=== PATIENT | female | born 1985 | race Caucasian/White ===

== ENCOUNTER 2022-12-28 06:21 | Day surgery (SDC) | payer OTHER ==
[2022-12-25 11:32] VITALS: BP 98/61
[2022-12-25 11:37] LABS: BASOPHILS % (AUTO) 0.8 % (0.0-5.0); EOSINOPHILS % (AUTO) 3.5 % (0.0-8.0); HEMATOCRIT 37.9 % (36-48); LYMPHOCYTES % (AUTO) 33.3 % (21.0-51.0); MEAN CORPUSCULAR HEMOGLOBIN 29.4 pg (27.0-33.0); MEAN CORPUSCULAR HGB CONC 32.2 g/dL (32.0-36.0); MEAN CORPUSCULAR VOLUME 91.3 fL (79-99); NEUTROPHILS % (AUTO) 55.2 % (40.0-77.0); PLATELET COUNT (AUTO) 430 K/uL (130-400); RED BLOOD CELL COUNT(AUTO) 4.15 MIL/uL (4.00-5.50); RED CELL DISTRIBUTION WIDTH 13.3 % (11.0-15.5); WHITE BLOOD COUNT (AUTO) 6.3 K/uL (4.8-10.8)
[~2022-12-28] VITALS: Ht 157.5 cm; Wt 46.2 kg
[2022-12-28] VITALS (15 sets, daily range): BP systolic 103–127; BP diastolic 64–83
[~2022-12-28 06:21] MED LIST: CETI10TA57 PO; IBUP-2077 PO
[2022-12-28] MEDS ORDERED: IBUPROFEN IV SCH (06:30)
[2022-12-28] MEDS ORDERED: NACL 0.9% IV SCH (06:30)
[2022-12-28] MEDS ORDERED: [UNRECOGNIZED DRUG - REMARK] MISC SCH (06:30)
[2022-12-28] MEDS ORDERED: CALDOLOR 800MG+NS 250ML 250 ML IV ONE (06:31)
[2022-12-28] MEDS ORDERED: LIDOCAINE PF 100MG/5ML (2%) SYRINGE 5ML ONE (06:42)
[2022-12-28] MEDS ORDERED: MIDAZOLAM HCL 1 MG/ML 2ML VIAL ONE (06:43)
[2022-12-28] MEDS ORDERED: PROPOFOL 10 MG/ML 20ML VIAL IV ONE (06:43)
[2022-12-28] MEDS ORDERED: FENTANYL CITRATE PF 50 MCG/1 ML 2ML VIAL ONE (06:43)
[2022-12-28] MEDS ORDERED: LACTATED RINGERS 1000ML 1,000 ML IV ONE (06:51)
[2022-12-28] MEDS ORDERED: CLINDAMYCIN IVPB 900MG/50ML 50 ML IV ONE (07:17)
[2022-12-28] MEDS ORDERED: STRONG IODINE SOLN 14ML BOTTLE ONE (07:58)
[2022-12-28] MEDS ORDERED: GLYCOPYRROLATE 1 MG/5 ML SYRINGE ONE (08:13)
== END 2022-12-28 10:10 | disposition home or self-care (01) ==
LOC: DAH 06:21 → EDSEX 09:00 → DAH 10:10
PROVIDERS: ATTEND Obstetrics & Gynecology
DX: R87.611 Atypical squamous cells cannot exclude high grade squamous intraepithelial lesion on cytologic smear of cervix (ASC-H) (principal); Z20.822 Contact with and (suspected) exposure to COVID-19; N72 Inflammatory disease of cervix uteri; Z88.0 Allergy status to penicillin; Z87.891 Personal history of nicotine dependence; Z80.3 Family history of malignant neoplasm of breast; Z83.49 Family history of other endocrine, nutritional and metabolic diseases; Z72.89 Other problems related to lifestyle
CPT/HCPCS: 84703; 85025; 86850 ×2; 86900 ×2; 86901 ×2; 87426; 36415 ×2; 57520; 88307; 88342; 88341; A6260; A4663; A4351; J7120; J3010; J3490 ×2; J2001; J2250; J2704; J1741; A4649; A4215; A4223; A4222; A4221; A4600; A4510

== ENCOUNTER → 2023-02-11 | Outpatient (CLI) | payer OTHER ==
[~2023-02-11] MED LIST changes: +IOHEXOL 350 MG/ML 100ML INFUS..BTL IV ONE
== END | disposition home or self-care (01) ==
LOC: RAH 10:45
PROVIDERS: ATTEND Physical Medicine & Rehabilitation
DX: R07.89 Other chest pain (principal)
CPT/HCPCS: 71260; Q9967

== ENCOUNTER → 2024-02-15 | Outpatient (CLI) | payer OTHER ==
[~2024-02-15] MED LIST changes: -IOHEXOL 350 MG/ML 100ML INFUS..BTL IV ONE
== END | disposition home or self-care (01) ==
LOC: RAH 12:36
PROVIDERS: ATTEND Obstetrics & Gynecology
DX: Z12.31 Encounter for screening mammogram for malignant neoplasm of breast (principal)
CPT/HCPCS: 77067